=== PATIENT | male | born 1930 | race Caucasian/White ===

== ENCOUNTER 2017-03-31 09:35 | Inpatient (IN) | payer MEDICARE, BC ==
--- NOTE | 2017-03-31 09:41 | EDM.PDOC ---
ED HPI GENERAL MEDICAL PROBLEM - General Stated Complaint: BY AMBULANCE Time Seen by Provider: 03/31/17 09:32 Source of Information: Reports: EMS, Family, RN History Limitations: Reports: Altered Mental Status - History of Present Illness INITIAL COMMENTS - FREE TEXT/NARRATIVE: This 86 yo male patient was brought to the ED by [facility] due to increased shortness of breath. The patient's son reports the patient has had a loose cough over the past 2 weeks. The patient was started on Azithromycin last week with no improvement. The patient's son reports that the patient has Parkinson's and has not been doing well. The son reported that the patient is a DNR (no intubation, no feeding tubes, no defibrillation). Sudha Saucedo reported that she did do an influenza screen (negative) today and his temp was 101.1 during her evaluation. The patient did not respond during the assessment. 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 - Related Data Allergies Allergy/AdvReac Type Severity Reaction Status Date / Time No Known Allergies Allergy Verified 10/05/14 14:10 Home Meds: Home Meds Ascorbate Calcium [Vitamin C] 500 mg PO DAILY 10/05/14 [History] Calcium Carbonate/Vitamin D3 [Calcium 500-Vit D3 200 Tablet] 1 each PO DAILY [History] Carbidopa/Levodopa [Carbidopa-Levodopa 25-100 Tab] 0.5 tab PO DAILY 10/05/14 [ History] Carbidopa/Levodopa [Carbidopa-Levodopa 25-100 Tab] 1 tab PO BID 10/05/14 [ History] Donepezil HCl 10 mg PO BEDTIME 10/05/14 [History] Acetaminophen [Tylenol Extra Strength] 1 tab PO BID 03/31/17 [History] Azithromycin [IJD: Azithromycin] 1 tab PO DAILY 03/31/17 [History] Sennosides/Docusate Sodium [Senna Plus Tablet] 1 tab PO BID 03/31/17 [History] levETIRAcetam [Keppra] 1 tab PO BID 03/31/17 [History] Past Medical History Other Dermatologic History: pressure area to bottom, nothing open at this time. home healthcare does follow - Past Surgical History Other HEENT Surgeries/Procedures: dental implant Other GI Surgeries/Procedures: sigmoidectomy Other Male Surgeries/Procedures: prostate ca ??Turp Social & Family History - Tobacco Use Smoking Status *Q: Unknown Ever Smoked Years of Tobacco use: 20 Used Tobacco, but Quit: Yes Month Tobacco Last Used: 25 years ago Second Hand Smoke Exposure: No - Alcohol Use Days Per Week of Alcohol Use: 0 - Recreational Drug Use Recreational Drug Use: No - Living Situation & Occupation Living situation: Reports: , with Family Occupation: Retired ED ROS GENERAL - Review of Systems Review Of Systems: ROS reveals no pertinent complaints other than HPI. ED EXAM, GENERAL - Physical Exam Exam: See Below Exam Limited By: No Limitations General Appearance: Lethargic, Severe Distress, Thin Eye Exam: Bilateral Eye: Other (The patient did not open his eyes under his own efforts. Pupils were equal and reactive when opened manually.) Ears: Normal External Exam, Normal Canal Nose: Normal Inspection, Normal Mucosa, No Blood Throat/Mouth: Other (dry mouth) Head: Atraumatic, Normocephalic Neck: Normal Inspection, Supple, Non-Tender, Full Range of Motion Respiratory/Chest: Decreased Breath Sounds, Rhonchi (diffuse, but with minimal respiratory effort) Cardiovascular: Normal Peripheral Pulses, Regular Rate, Rhythm, No Edema GI/Abdominal: Normal Bowel Sounds, Soft, Non-Tender, No Organomegaly, No Distention, No Abnormal Bruit, No Mass (Male) Exam: Deferred Rectal (Males) Exam: Deferred Neurological: Inattentive, Unresponsive Skin Exam: Warm, Dry, Intact, Normal Color, No Rash Lymphatic: No Adenopathy Course - Vital Signs Last Recorded V/S: Last Vital Signs Temp 37.6 C 03/31/17 09:35 Pulse 74 03/31/17 09:35 Resp 25 H 03/31/17 09:35 BP 115/64 03/31/17 09:35 Pulse Ox 88 L 03/31/17 09:35 - Orders/Labs/Meds Orders: Active Orders 24 hr Category Date Time Status CULTURE BLOOD [BC] Stat Lab 03/31/17 09:30 Ordered CULTURE BLOOD [BC] Stat Lab 03/31/17 09:42 Received UA W/MICROSCOPIC [URIN] Stat Lab 03/31/17 09:30 Uncollected Piperacillin/Tazobactam [Zosyn] 3.375 gm Med 03/31/17 10:20 Ordered Sodium Chloride 0.9% [Normal Saline] 100 ml IV ONETIME Blood Culture x2 Reflex Set [OM.PC] Stat Oth 03/31/17 09:30 Ordered Labs: Laboratory Tests 03/31/17 03/31/17 03/31/17 Range/Units 09:42 09:42 09:42 WBC 7.5 (5.0-10.0) 10^3/uL RBC 4.17 L (4.6-6.2) 10^6/uL Hgb 13.1 L (14.0-18.0) g/dL Hct 40.7 (40.0-54.0) % MCV 97.6 (80-100) fL MCH 31.4 (27.0-34.0) pg MCHC 32.2 L (33.0-35.0) g/dL Plt Count 232 (150-450) 10^3/uL Neut % (Auto) 81.2 H (42.2-75.2) % Lymph % (Auto) 8.9 L (20.5-50.1) % [place] % (Auto) 6.2 (2-8) % Eos % (Auto) 0.3 L (1.0-3.0) % Baso % (Auto) 3.4 H (0.0-1.0) % Sodium 151 H D (135-145) mmol/L Potassium 3.6 (3.6-5.0) mmol/L Chloride 112 H D (101-111) mmol/L Carbon Dioxide 30.0 (21.0-31.0) mmol/L Anion Gap 12.6 BUN 42 H D (7-18) mg/dL Creatinine 0.7 (0.6-1.3) mg/dL Est Cr Clr Drug Dosing TNP Estimated GFR (MDRD) > 60 BUN/Creatinine Ratio 60.00 Glucose 98 (74-105) mg/dL Lactic Acid 1.1 (0.5-2.2) mmol/L Calcium 8.6 (8.4-10.2) mg/dl Total Bilirubin 1.7 H (0.2-1.0) mg/dL AST 28 (10-42) IU/L ALT 22 (10-60) IU/L Alkaline Phosphatase 57 (42-121) IU/L B-Natriuretic Peptide 251 H (0-100) pg/ml Total Protein 6.1 L (6.7-8.2) g/dl Albumin 2.9 L (3.2-5.5) g/dl Globulin 3.2 Albumin/Globulin Ratio 0.91 Departure - Departure Time of Disposition: 10:21 Disposition: Admitted As Inpatient 64 Condition: Poor Clinical Impression: Left lower lobe pneumonia Qualifiers: Pneumonia type: due to unspecified organism Qualified Code(s): J18.1 - Lobar pneumonia, unspecified organism - Discharge Information Care Plan Goals: Discussed the examination, history, lab and x-ray results with Dr. Britton. Dr. Britton accepted the patient for continued evaluation and management as an inpatient. The patient was given Zosyn IV while in the ED. - My Orders Last 24 Hours: My Active Orders 03/31/17 09:30 CULTURE BLOOD [BC] Stat UA W/MICROSCOPIC [URIN] Stat Blood Culture x2 Reflex Set [OM.PC] Stat 03/31/17 09:42 CULTURE BLOOD [BC] Stat 03/31/17 10:20 Piperacillin/Tazobactam [Zosyn] 3.375 gm Sodium Chloride 0.9% [Normal Saline] 100 ml IV ONETIME - Assessment/Plan Last 24 Hours: My Active Orders 03/31/17 09:30 CULTURE BLOOD [BC] Stat UA W/MICROSCOPIC [URIN] Stat Blood Culture x2 Reflex Set [OM.PC] Stat 03/31/17 09:42 CULTURE BLOOD [BC] Stat 03/31/17 10:20 Piperacillin/Tazobactam [Zosyn] 3.375 gm Sodium Chloride 0.9% [Normal Saline] 100 ml IV ONETIME
[2017-03-31 10:11] LABS: ANION GAP 12.6; CHLORIDE,CL 112 mmol/L (101-111); SODIUM,NA 151 mmol/L (135-145)
--- NOTE | 2017-03-31 10:14 | CR ---
Clinical history: 86-year-old male towards of breath. Interpretation: Abnormal. Asymmetric dense new left lower lobe pneumonic like consolidation (infiltrate/atelectasis) when stewart red to 05 December 2014 film. Normal cardiac silhouette without cephalization of vascular flow, signs of alveolar edema or dependen t pleural effusion. No lung mass, hilar lymphadenopathy or other focal lobar consolidation. CONCLUSION: Acute left lower lobe infiltrate or infarct.
[2017-03-31] MEDS ORDERED: Piperacillin/Tazobactam 3.375 GM in Sodium Chloride 0.9% 100 ML IV ONE (10:20)
[2017-03-31] MEDS ORDERED: Sodium Chloride 0.9% 10 ML Syringe FLUSH PRN (11:22)
[2017-03-31] MEDS ORDERED: Ondansetron 4 MG/2 ML SDV IVPUSH PRN (11:22)
[2017-03-31] MEDS ORDERED: Azithromycin 500 MG in Sodium Chloride 0.9% 250 ML IV SCH (11:30)
--- NOTE | 2017-03-31 11:35 | PCM.HP ---
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 he has significant contractures, practically nonverbal, need to have elevated feeding. He lives in a assisted. In the past 2 weeks the patient has had a cough just about that has respiratory tract infection. He was started on azithromycin. In the past 2 days the patient had minimal oral intake. Increasingly less responsive Currently the patient is not waking up, not talking, not following commands - Related Data Allergies/Adverse Reactions: Allergies Allergy/AdvReac Type Severity Reaction Status Date / Time No Known Allergies Allergy Verified 10/05/14 14:10 Home Medications: Home Meds Ascorbate Calcium [Vitamin C] 500 mg PO DAILY 10/05/14 [History] Calcium Carbonate/Vitamin D3 [Calcium 500-Vit D3 200 Tablet] 1 each PO DAILY [History] Carbidopa/Levodopa [Carbidopa-Levodopa 25-100 Tab] 0.5 tab PO DAILY 10/05/14 [ History] Carbidopa/Levodopa [Carbidopa-Levodopa 25-100 Tab] 1 tab PO BID 10/05/14 [ History] Donepezil HCl 10 mg PO BEDTIME 10/05/14 [History] Acetaminophen [Tylenol Extra Strength] 1 tab PO BID 03/31/17 [History] Azithromycin [IJD: Azithromycin] 1 tab PO DAILY 03/31/17 [History] Sennosides/Docusate Sodium [Senna Plus Tablet] 1 tab PO BID 03/31/17 [History] levETIRAcetam [Keppra] 1 tab PO BID 03/31/17 [History] Past Medical History Cardiovascular History: Reports: Hypertension Genitourinary History: Reports: Urinary Incontinence Musculoskeletal History: Reports: Other (See Below) Other Musculoskeletal History: contracture Neurological History: Reports: Parkinson's Other Dermatologic History: dressings to left trochanter- pressure area? - Past Surgical History Other HEENT Surgeries/Procedures: dental implant Other GI Surgeries/Procedures: sigmoidectomy Other Male Surgeries/Procedures: prostate ca ??Turp Social & Family History - Tobacco Use Smoking Status *Q: Unknown Ever Smoked Years of Tobacco use: 20 Used Tobacco, but Quit: Yes Month Tobacco Last Used: 25 years ago Second Hand Smoke Exposure: No - Caffeine Use Caffeine Use: Reports: None - Alcohol Use Days Per Week of Alcohol Use: 0 - Recreational Drug Use Recreational Drug Use: No - Living Situation & Occupation Living situation: Reports: , with Family Occupation: Retired H&P Review of Systems - Review of Systems: Review Of Systems: See Below General: Reports: Fever Pulmonary: Reports: Cough, Sputum Gastrointestinal: Denies: Abdominal Pain Psychiatric: Reports: Other (lethargic) Neurological: Reports: Other (contractures, bedbound) Exam - Exam Exam: See Below - Vital Signs Vital Signs: Last Vital Signs Temp 37.6 C 03/31/17 09:35 Pulse 74 03/31/17 09:35 Resp 25 H 03/31/17 09:35 BP 115/64 03/31/17 09:35 Pulse Ox 88 L 03/31/17 09:35 - Exam Quality Assessment: Supplemental Oxygen Neck: Supple Lungs: Normal Respiratory Effort, Decreased Breath Sounds Cardiovascular: Regular Rate, Regular Rhythm GI/Abdominal Exam: Normal Bowel Sounds, Soft, Non-Tender Extremities: No Pedal Edema, Other (decreased muscle mass) Skin: Decubitis (on the sacral area and hip area) Neurological: Other (contracture, nonresponsive) Neuro Extensive - Mental Status: No: Alert, Opens Eyes to Commands Neuro Extensive - Motor, Sensory, Reflexes: No: Tremor Psychiatric: Other (lethargic) - Patient Data Result Diagrams: 03/31/17 09:42 03/31/17 09:42 Imaging Impressions Last 24 hrs: chest x-ray describes left lower lobe pneumonia *Q Meaningful Use (ADM) - VTE *Q VTE Criteria *Q: - Stroke *Q Stroke Criteria *Q: - AMI *Q AMI Criteria *Q: - Problem List (1) Dehydration SNOMED Code(s): 34084689 ICD Code: E86.0 - DEHYDRATION Status: Acute Current Visit: Yes (2) Seizure disorder SNOMED Code(s): 491398723 ICD Code: G40.909 - EPILEPSY, UNSP, NOT INTRACTABLE, WITHOUT STATUS EPILEPTICUS Status: Acute Current Visit: Yes (3) Left lower lobe pneumonia SNOMED Code(s): 359373356 ICD Code: J18.1 - LOBAR PNEUMONIA, UNSPECIFIED ORGANISM Status: Acute Current Visit: Yes Qualifiers: Pneumonia type: due to unspecified organism Qualified Code(s): J18.1 - Lobar pneumonia, unspecified organism (4) Parkinson disease SNOMED Code(s): 76965690 ICD Code: G20 - PARKINSON'S DISEASE Status: Chronic Current Visit: No Problem List Initiated/Reviewed/Updated: Yes Orders Last 24hrs: Active Orders 24 hr Category Date Time Status Patient Status [ADT] Routine ADT 03/31/17 11:22 Ordered Antiembolic Devices [RC] PER UNIT ROUTINE Care 03/31/17 11:26 Ordered Oxygen Therapy [RC] PRN Care 03/31/17 11:22 Ordered Peripheral IV Care [RC] . DIRECTED Care 03/31/17 11:26 Ordered Up With Assistance [RC] ASDIRECTED Care 03/31/17 11:22 Ordered VTE/DVT Education [RC] PER UNIT ROUTINE Care 03/31/17 11:22 Ordered Vital Signs [RC] Q4H Care 03/31/17 11:22 Ordered Regular Diet [DIET] Diet 03/31/17 Lunch Ordered BASIC METABOLIC PANEL,BMP [CHEM] AM Lab 04/01/17 05:11 Ordered CBC WITH AUTO DIFF [HEME] AM Lab 04/01/17 05:11 Ordered CULTURE SPUTUM + SMEAR [RM] Routine Lab 03/31/17 11:14 Uncollected Acetaminophen [Tylenol] Med 03/31/17 11:22 Ordered 650 mg RECTAL Q4H PRN Azithromycin [Zithromax] 500 mg Med 03/31/17 11:30 Ordered Sodium Chloride 0.9% [Normal Saline] 250 ml IV Q24H Carbidopa/Levodopa [Sinemet 25-100 mg] Med 04/01/17 09:00 Ordered 0.5 tab PO DAILY Carbidopa/Levodopa [Sinemet 25-100 mg] Med 03/31/17 21:00 Ordered 1 tab PO BID Dextrose 5%-1/2 NS w/ 20 mEq/L KCl @ 75 mL/Hr (1000 mL Med 03/31/17 11:30 Ordered ) D5 1/2 NS w/ 20 mEq/L KCl 1,000 ml IV ASDIRECTED Docusate Sodium/Sennosides [Senna Plus] Med 03/31/17 21:00 Ordered 1 tab PO BID Donepezil [Aricept] Med 03/31/17 21:00 Ordered 10 mg PO BEDTIME Heparin Sodium Med 03/31/17 14:00 Ordered 5,000 units SUBCUT Q8HR Ondansetron [Zofran] Med 03/31/17 11:22 Ordered 4 mg IVPUSH Q6H PRN Piperacillin/Tazobactam [Zosyn] 3.375 gm Med 03/31/17 11:30 Ordered Sodium Chloride 0.9% [Normal Saline] 100 ml IV Q6H Sodium Chloride 0.9% [Saline Flush] Med 03/31/17 11:22 Ordered 10 ml FLUSH ASDIRECTED PRN levETIRAcetam [Keppra] 500 mg Med 03/31/17 21:00 Ordered Sodium Chloride 0.9% [Normal Saline] 100 ml IV BID Antiembolic Hose [OM.PC] Per Unit Routine Oth 03/31/17 11:25 Ordered Peripheral IV Insertion Adult [OM.PC] Routine Oth 03/31/17 11:22 Ordered Resuscitation Status Routine Resus Stat 03/31/17 11:22 Ordered Medication Orders Acetaminophen (Tylenol) 650 mg RECTAL Q4H PRN PRN Reason: Pain (mild 1-3) Carbidopa/Levodopa (Sinemet 25-100 Mg) 0.5 tab PO DAILY JM Carbidopa/Levodopa (Sinemet 25-100 Mg) 1 tab PO BID JM Donepezil HCl (Aricept) 10 mg PO BEDTIME JM Azithromycin 500 mg/ Sodium (Chloride) 250 mls @ 250 mls/hr IV Q24H JM Piperacillin Sod/Tazobactam (Sod 3.375 gm/ Sodium Chloride) 100 mls @ 200 mls/ hr IV Q6H JM Potassium Chloride/Dextrose/Sod Cl (D5 1/2 Ns W/ 20 Meq/L Kcl) 1,000 mls @ 75 mls/hr IV ASDIRECTED JM Levetiracetam 500 mg/ Sodium (Chloride) 105 mls @ 400 mls/hr IV BID JM Senna/Docusate Sodium (Senna Plus) 1 tab PO BID JM Assessment/Plan Comment:: the patient is an 86-year-old gentleman who lives in a assisted, has advanced dementia and Parkinson's disease. Contractures. He is normally minimally verbal. Presented with dehydration, left lower lobe infiltrate. #1 acute encephalopathy the patient has a baseline dementia and minimally verbal. he is worse than his baseline likely due to significant dehydration, hypernatremia We'll hydrate the patient Continue Keppra will change it IV Continue Parkinson medication when able to eat and swallow #2 dehydration, hypernatremia Likely due to acute illness and baseline dementia and Parkinson's disease The power of deputy county attorney would not want feeding tube. Will hydrate with IV fluids #3 left lower lobe pneumonia We will obtain sputum culture, blood culture Will treat with azithromycin and Zosyn given the concern for gram-negative organisms and have related pneumonia in a assisted resident #4 decubitus ulcers Start aquacell foam dressing and follow #5 DVT prophylaxis will be with subcutaneous heparin #6 discussed treatment options with the patient's power of deputy county attorney. He would like no intubation or resuscitation no feeding tube but continued medical care.
[2017-03-31] MEDS: Piperacillin/Tazobactam 3.375 GM in Sodium Chloride 0.9% 100 ML IV SCH ×2 (12:18→18:55)
[2017-03-31] MEDS: D5 1/2 NS w/ 20 mEq/L KCl 1,000 ML IV SCH (12:19)
[2017-03-31] MEDS: Azithromycin 500 MG in Sodium Chloride 0.9% 250 ML IV SCH (13:40)
[2017-03-31] MEDS: Carbidopa/Levodopa 25-100 MG Tab PO SCH ×2 (13:41→21:42)
[2017-03-31] MEDS: Heparin Sodium 5,000 Units/ML Vial SUBCUT SCH ×2 (13:41→21:56)
[2017-03-31] MEDS: Donepezil 10 MG Tab PO SCH (21:43)
[2017-03-31] MEDS: Acetaminophen 650 MG Supp RECTAL PRN (21:57)
[2017-03-31] MEDS: levETIRAcetam 500 MG in Sodium Chloride 0.9% 100 ML IV SCH (22:13)
[2017-04-01] MEDS: Piperacillin/Tazobactam 3.375 GM in Sodium Chloride 0.9% 100 ML IV SCH ×5 (00:47→23:36)
[2017-04-01] MEDS: D5 1/2 NS w/ 20 mEq/L KCl 1,000 ML IV SCH (05:00)
[2017-04-01] MEDS: Heparin Sodium 5,000 Units/ML Vial SUBCUT SCH ×3 (06:10→22:20)
[2017-04-01] MEDS: Acetaminophen 650 MG Supp RECTAL PRN (06:29)
[2017-04-01 07:05] LABS: ANION GAP 11.8; CHLORIDE,CL 116 mmol/L (101-111); SODIUM,NA 153 mmol/L (135-145)
[2017-04-01 07:42] VITALS: BP 113/59
[2017-04-01] MEDS: levETIRAcetam 500 MG in Sodium Chloride 0.9% 100 ML IV SCH ×2 (09:22→21:11)
[2017-04-01] MEDS: Carbidopa/Levodopa 25-100 MG Tab PO SCH ×3 (09:23→22:19)
--- NOTE | 2017-04-01 10:27 | PCM.PN ---
- General Info Date of Service: 04/01/17 Admission Dx/Problem (Free Text): Admission Diagnosis/Problem Admission Diagnosis/Problem Pneumonia Subjective Update: remained stable bu t not improved non verbal, obtunded, laying in a contracted position Son is at bedside he does not appear in pain - Review of Systems General: Denies: Fever - Patient Data Vitals - Most Recent: Last Vital Signs Temp 37.3 C 04/01/17 07:00 Pulse 64 04/01/17 07:00 Resp 20 04/01/17 07:00 BP 113/59 L 04/01/17 07:00 Pulse Ox 90 L 04/01/17 07:00 Weight - Most Recent: 58.423 kg I&O - Last 24 Hours: Intake & Output 03/31/17 04/01/17 04/01/17 22:59 06:59 14:59 Output Total 550 Balance -550 Lab Results Last 24 Hours: Laboratory Results - last 24 hr 03/31/17 04/01/17 04/01/17 Range/Units 18:20 06:20 06:20 WBC 8.4 (5.0-10.0) 10^3/uL RBC 4.14 L (4.6-6.2) 10^6/uL Hgb 12.9 L (14.0-18.0) g/dL Hct 41.1 (40.0-54.0) % MCV 99.3 (80-100) fL MCH 31.2 (27.0-34.0) pg MCHC 31.4 L (33.0-35.0) g/dL Plt Count 230 (150-450) 10^3/uL Neut % (Auto) 80.2 H (42.2-75.2) % Lymph % (Auto) 9.2 L (20.5-50.1) % [place] % (Auto) 6.9 (2-8) % Eos % (Auto) 0.4 L (1.0-3.0) % Baso % (Auto) 3.3 H (0.0-1.0) % Sodium 153 H (135-145) mmol/L Potassium 3.8 (3.6-5.0) mmol/L Chloride 116 H (101-111) mmol/L Carbon Dioxide 29.0 (21.0-31.0) mmol/L Anion Gap 11.8 BUN 27 H (7-18) mg/dL Creatinine 0.9 (0.6-1.3) mg/dL Est Cr Clr Drug Dosing 46.88 mL/min Estimated GFR (MDRD) > 60 Glucose 122 H (74-105) mg/dL Calcium 8.3 L (8.4-10.2) mg/dl Urine Color Yellow (YELLOW) Urine Appearance Cloudy (CLEAR) Urine pH 5.5 (5.0-9.0) Ur Specific [place] 1.010 (1.005-1.030) Urine Protein 100 H (NEGATIVE) Urine Glucose (UA) Negative (NEGATIVE) Urine Ketones Negative (NEGATIVE) Urine Occult Blood Moderate H (NEGATIVE) Urine Nitrite Positive H (NEGATIVE) Urine Bilirubin Negative (NEGATIVE) Urine Urobilinogen 1.0 (0.2-1.0) mg/dL Ur Leukocyte Esterase Moderate H (NEGATIVE) Urine RBC 10-20 H /HPF Urine WBC >100 H (0-5/HPF) /HPF Ur Epithelial Cells Occasional /HPF Urine Bacteria Many H (0-FEW/HPF) /HPF Med Orders - Current: Current Medications Acetaminophen (Tylenol) 650 mg RECTAL Q4H PRN PRN Reason: Pain (mild 1-3) Last Admin: 04/01/17 06:29 Dose: 650 mg Carbidopa/Levodopa (Sinemet 25-100 Mg) 0.5 tab PO DAILY@1300 [facility] Last Admin: 03/31/17 13:41 Dose: Not Given Carbidopa/Levodopa (Sinemet 25-100 Mg) 1 tab PO BID@0800,2000 [facility] Last Admin: 04/01/17 09:23 Dose: Not Given Donepezil HCl (Aricept) 10 mg PO BEDTIME [facility] Last Admin: 03/31/17 21:43 Dose: Not Given Heparin Sodium (Porcine) (Heparin Sodium) 5,000 units SUBCUT Q8HR [facility] Last Admin: 04/01/17 06:10 Dose: 5,000 units Piperacillin Sod/Tazobactam (Sod 3.375 gm/ Sodium Chloride) 100 mls @ 200 mls/ hr IV Q6H [facility] Last Admin: 04/01/17 06:09 Dose: 100 mls/hr Levetiracetam 500 mg/ Sodium (Chloride) 105 mls @ 400 mls/hr IV BID [facility] Last Admin: 04/01/17 09:22 Dose: 400 mls/hr Azithromycin 500 mg/ Sodium (Chloride) 250 mls @ 250 mls/hr IV Q24H [facility] Last Admin: 03/31/17 13:40 Dose: 250 mls/hr Dextrose/Water (Dextrose 5% In Water) 1,000 mls @ 75 mls/hr IV ASDIRECTED [facility] Ondansetron HCl (Zofran) 4 mg IVPUSH Q6H PRN PRN Reason: Nausea/Vomiting Senna/Docusate Sodium (Senna Plus) 1 tab PO BID [facility] Last Admin: 04/01/17 09:23 Dose: Not Given Sodium Chloride (Saline Flush) 10 ml FLUSH ASDIRECTED PRN PRN Reason: Keep Vein Open Discontinued Medications Piperacillin Sod/Tazobactam (Sod 3.375 gm/ Sodium Chloride) 100 mls @ 200 mls/ hr IV ONETIME ONE Stop: 03/31/17 10:49 Last Admin: 03/31/17 10:39 Dose: 200 mls/hr Potassium Chloride/Dextrose/Sod Cl (D5 1/2 Ns W/ 20 Meq/L Kcl) 1,000 mls @ 75 mls/hr IV ASDIRECTED [facility] Last Admin: 04/01/17 05:00 Dose: 75 mls/hr - Exam General: Lethargic Lungs: Normal Respiratory Effort, Decreased Breath Sounds Cardiovascular: Regular Rate, Regular Rhythm GI/Abdominal Exam: Normal Bowel Sounds, Soft Extremities: Other (decreased muscle mass, contractures) - Problem List & Annotations (1) Dehydration SNOMED Code(s): 18772775 Code(s): E86.0 - DEHYDRATION Status: Acute Current Visit: Yes (2) Seizure disorder SNOMED Code(s): 103131783 Code(s): G40.909 - EPILEPSY, UNSP, NOT INTRACTABLE, WITHOUT STATUS EPILEPTICUS Status: Acute Current Visit: Yes (3) Left lower lobe pneumonia SNOMED Code(s): 380053824 Code(s): J18.1 - LOBAR PNEUMONIA, UNSPECIFIED ORGANISM Status: Acute Current Visit: Yes Qualifiers: Pneumonia type: due to unspecified organism Qualified Code(s): J18.1 - Lobar pneumonia, unspecified organism (4) Parkinson disease SNOMED Code(s): 20562381 Code(s): G20 - PARKINSON'S DISEASE Status: Chronic Current Visit: No - Problem List Review Problem List Initiated/Reviewed/Updated: Yes - My Orders Last 24 Hours: My Active Orders 03/31/17 13:00 Azithromycin [Zithromax] 500 mg Sodium Chloride 0.9% [Normal Saline] 250 ml IV Q24H 03/31/17 18:36 Urinary Catheter Assessment [RC] 09,21 03/31/17 18:45 Insert Ortega Catheter [Insert Urinary Catheter] [OM.PC] Q24H 04/01/17 10:30 Dextrose 5% in Water @ 75 MLS/HR(1000ml) Dextrose 5% in Water 1,000 ml IV ASDIRECTED 04/01/17 16:00 BASIC METABOLIC PANEL,BMP [CHEM] Timed 04/02/17 05:15 BASIC METABOLIC PANEL,BMP [CHEM] AM CBC WITH AUTO DIFF [HEME] AM - Plan Plan:: the patient is an 86-year-old gentleman who lives in a retirement, has advanced dementia and Parkinson's disease. Contractures. He is normally minimally verbal. Presented with dehydration, left lower lobe infiltrate. #1 acute encephalopathy the patient has a baseline dementia and minimally verbal. he is worse than his baseline likely due to significant dehydration, hypernatremia We'll hydrate the patient Continue Keppra will change it IV Continue Parkinson medication when able to swallow #2 dehydration, hypernatremia Likely due to acute illness and baseline dementia and Parkinson's disease The power of traffic law attorney would not want feeding tube. renal fx. is better but hypernatremia is worse switch ivf to D5W follow elytes closely #3 left lower lobe pneumonia pending blood culture Will treat with azithromycin and Zosyn given the concern for gram-negative organisms and have related pneumonia in a retirement resident #4 decubitus ulcers Start aquacell foam dressing and follow #5 DVT prophylaxis will be with subcutaneous heparin #6 discussed treatment options with the patient's power of traffic law attorney. He would like no intubation or resuscitation no feeding tube but continued medical care. today would like to continue hydration and abx and possibly change to comfort care only if no improvement
[2017-04-01] MEDS ORDERED: Dextrose 5% in Water 1,000 ML IV SCH (10:30)
[2017-04-01] MEDS: Azithromycin 500 MG in Sodium Chloride 0.9% 250 ML IV SCH (13:17)
[2017-04-01] MEDS: Donepezil 10 MG Tab PO SCH (22:19)
[2017-04-02] MEDS: Piperacillin/Tazobactam 3.375 GM in Sodium Chloride 0.9% 100 ML IV SCH ×2 (05:58→11:28)
[2017-04-02] MEDS: Heparin Sodium 5,000 Units/ML Vial SUBCUT SCH (05:58)
[2017-04-02] MEDS: Acetaminophen 650 MG Supp RECTAL PRN (10:08)
[2017-04-02] MEDS: Carbidopa/Levodopa 25-100 MG Tab PO SCH (11:27)
[2017-04-02] MEDS: levETIRAcetam 500 MG in Sodium Chloride 0.9% 100 ML IV SCH (11:28)
--- NOTE | 2017-04-02 11:33 | PCM.DCSUM1 ---
Discharge Summary - Hospital Course Free Text/Narrative:: See below HPI Initial Comments: See below Brief History: See below - Discharge Data Discharge Date: 04/02/17 Discharge Disposition: DC/Tfer to SNF 03 Condition: Poor - Patient Instructions Diet: Usual Diet as Tolerated Activity: As Tolerated Showering/Bathing: May Shower Notify Provider of: Fever, Nausea and/or Vomiting - Discharge Plan Home Medications: Home Meds Ascorbate Calcium [Vitamin C] 500 mg PO DAILY 10/05/14 [History] Carbidopa/Levodopa [Carbidopa-Levodopa 25-100 Tab] 0.5 tab PO DAILY 10/05/14 [ History] Carbidopa/Levodopa [Carbidopa-Levodopa 25-100 Tab] 25 - 100 mg PO BID 10/05/14 [ History] Acetaminophen 650 mg PO Q4HR PRN 03/31/17 [History] Acetaminophen [Pain Relief] 325 mg PO TID PRN 03/31/17 [History] Acetaminophen [Tylenol Extra Strength] 500 mg PO BID 03/31/17 [History] Bisacodyl 10 mg RC DAILY PRN 03/31/17 [History] Donepezil HCl 10 mg PO BEDTIME 03/31/17 [History] Lactose-Reduced Food [Ensure Plus] 8 oz PO TID 03/31/17 [History] Magnesium Hydroxide [Milk of Magnesia] 10 ml PO DAILY PRN 03/31/17 [History] Sennosides/Docusate Sodium [Senna Plus Tablet] 1 tab PO BID 03/31/17 [History] levETIRAcetam [Keppra] 500 mg PO BID 03/31/17 [History] Referrals: Sudha Saucedo PA [Primary Care Provider] - - Discharge Summary/Plan Comment DC Time >30 min.: No Discharge Summary/Plan Comment: A/P the patient is an 86-year-old gentleman who lives in a care home, has advanced dementia and Parkinson's disease. Contractures. He is normally minimally verbal. Presented with dehydration, left lower lobe infiltrate. #1 acute encephalopathy the patient has a baseline dementia and minimally verbal. Continue Keppra will change it IV Continue Parkinson medication when able to swallow #2 dehydration, hypernatremia Likely due to acute illness and baseline dementia and Parkinson's disease #3 left lower lobe pneumonia Treated empirically with antibiotics but did not improve much #4 decubitus ulcers #6 discussed treatment options with the patient's power of assistant district attorney. He would like no intubation or resuscitation no feeding tube but continued medical care. Patient was treated with intravenous antibiotics and intravenous fluid for rehydration. His condition continues to be critical. The family elected to proceed with conservative measures. I had further discussion with family members and they elected to proceed with comfort measures. The patient will be discharged back to the care home - Review of Systems General: Reports: Weakness Pulmonary: Reports: Shortness of Breath Neurological: Reports: Confusion, Other (Drowsy) - Patient Data Vitals - Most Recent: Last Vital Signs Temp 39.1 C H 04/02/17 10:08 Pulse 72 04/02/17 07:00 Resp 20 04/01/17 23:00 BP 113/59 L 04/01/17 07:00 Pulse Ox 94 L 04/02/17 07:00 Weight - Most Recent: 58.423 kg I&O - Last 24 hours: Intake & Output 04/01/17 04/02/17 04/02/17 22:59 06:59 14:59 Intake Total 1055 593 Output Total 125 Balance 1055 468 Med Orders - Current: Current Medications Acetaminophen (Tylenol) 650 mg RECTAL Q4H PRN PRN Reason: Pain (mild 1-3) Last Admin: 04/02/17 10:08 Dose: 650 mg Carbidopa/Levodopa (Sinemet 25-100 Mg) 0.5 tab PO DAILY@1300 PENDING SALE TO [facility] Last Admin: 04/01/17 12:06 Dose: Not Given Carbidopa/Levodopa (Sinemet 25-100 Mg) 1 tab PO BID@0800,2000 PENDING SALE TO [facility] Last Admin: 04/01/17 22:19 Dose: Not Given Donepezil HCl (Aricept) 10 mg PO BEDTIME PENDING SALE TO [facility] Last Admin: 04/01/17 22:19 Dose: Not Given Heparin Sodium (Porcine) (Heparin Sodium) 5,000 units SUBCUT Q8HR PENDING SALE TO [facility] Last Admin: 04/02/17 05:58 Dose: Not Given Piperacillin Sod/Tazobactam (Sod 3.375 gm/ Sodium Chloride) 100 mls @ 200 mls/ hr IV Q6H PENDING SALE TO [facility] Last Admin: 04/02/17 05:58 Dose: Not Given Levetiracetam 500 mg/ Sodium (Chloride) 105 mls @ 400 mls/hr IV BID PENDING SALE TO [facility] Last Admin: 04/01/17 21:11 Dose: 200 mls/hr Azithromycin 500 mg/ Sodium (Chloride) 250 mls @ 250 mls/hr IV Q24H PENDING SALE TO [facility] Last Admin: 04/01/17 13:17 Dose: 175 mls/hr Dextrose/Water (Dextrose 5% In Water) 1,000 mls @ 75 mls/hr IV ASDIRECTED PENDING SALE TO [facility] Last Admin: 04/01/17 11:40 Dose: 75 mls/hr Ondansetron HCl (Zofran) 4 mg IVPUSH Q6H PRN PRN Reason: Nausea/Vomiting Senna/Docusate Sodium (Senna Plus) 1 tab PO BID PENDING SALE TO [facility] Last Admin: 04/01/17 22:20 Dose: Not Given Sodium Chloride (Saline Flush) 10 ml FLUSH ASDIRECTED PRN PRN Reason: Keep Vein Open Discontinued Medications Piperacillin Sod/Tazobactam (Sod 3.375 gm/ Sodium Chloride) 100 mls @ 200 mls/ hr IV ONETIME ONE Stop: 03/31/17 10:49 Last Admin: 03/31/17 10:39 Dose: 200 mls/hr Potassium Chloride/Dextrose/Sod Cl (D5 1/2 Ns W/ 20 Meq/L Kcl) 1,000 mls @ 75 mls/hr IV ASDIRECTED PENDING SALE TO [facility] Last Admin: 04/01/17 05:00 Dose: 75 mls/hr *Q Meaningful Use (DIS) - VTE *Q VTE Criteria *Q: - Stroke *Q Stroke Criteria *Q: - AMI *Q AMI Criteria *Q:
[2017-04-02] MEDS ORDERED: Morphine 2 MG/ML Syringe IVPUSH ONE (12:55)
== END 2017-04-02 13:15 | DRG 193 ==
LOC: DL.ED 09:35 → UNDOADMIN 11:07 → DL.MS 11:07
PROVIDERS: ADMIT Internal Medicine; ATTEND Internal Medicine
DX: J18.1 Lobar pneumonia, unspecified organism (principal); G93.40 Encephalopathy, unspecified; E87.0 Hyperosmolality and hypernatremia; E86.0 Dehydration; G40.909 Epilepsy, unspecified, not intractable, without status epilepticus; G20 Parkinson's disease; Z66 Do not resuscitate; Z87.891 Personal history of nicotine dependence; F03.90 Unspecified dementia, unspecified severity, without behavioral disturbance, psychotic disturbance, mood disturbance, and anxiety; L89.229 Pressure ulcer of left hip, unspecified stage; R06.02 Shortness of breath; Z51.5 Encounter for palliative care
CPT/HCPCS: 36415; 71045; 80053; 83605; 83880; 85025; 87040 ×2; 87804 ×2; 96365; 99285; J2543; J7050; 80048; 81001; 99284; A9270-GY; J0456; J1644; J1953; J2270; J3480; J7060